=== PATIENT | female | born 2000 | race Caucasian/White ===

== ENCOUNTER → 2021-05-15 16:32 | Observation (INO) ==
[2021-05-15 15:37] LABS: Candida DNA DETECTED (Not Detect); Gardnerella DNA Not Detected (Not Detect); Trichomonas DNA Not Detected (Not Detect)
== END | disposition home or self-care (01) ==
LOC: 1NENULAB
PROVIDERS: ADMIT Registered Nurse; ATTEND Registered Nurse

== ENCOUNTER → 2021-06-01 15:18 | Observation (INO) ==
[2021-06-01 11:27] LABS: Basophils % 0.3 %; Eosinophils % 0.3 %; Hematocrit 25.1 % (35.3-44.9); Hemoglobin 7.6 g/dL (11.5-15.4); Immature Granulocytes % 0.7 % (0-4); Lymphocytes # 1.7 K/mcL (0.6-4.6); Lymphocytes % 16.8 %; Mean Corpuscular HGB Conc 30.3 g/dL (31.6-35.5); Mean Corpuscular Hemoglobin 25.2 pg (28.0-33.3); Mean Corpuscular Volume 83.1 fL (83.0-100.0); Mean Platelet Volume 10.5 fL (9.4-12.4); Monocytes # 0.8 K/mcL (0.0-1.3); Monocytes % 7.9 %; Neutrophils # 7.3 K/mcL (1.6-8.9); Platelet Count 242 K/mcL (140-400); Red Blood Count 3.02 M/mcL (3.82-4.97); Red Cell Distribution Width 14.2 % (11.5-14.5); White Blood Count 9.9 K/mcL (4.3-11.1)
[2021-06-01 11:29] LABS: Protein/Creatinine Ratio,Urine 0.23 mg/mg (0.00-0.20)
[2021-06-01 11:48] LABS: Alanine Aminotransferase 7 Units/L (7-52); Aspartate Amino Transferase 14 Units/L (13-39); BUN/Creatinine Ratio 9 (6-26); Blood Urea Nitrogen 6 mg/dL (6-20); Lactate Dehydrogenase 138 Units/L (140-271); Uric Acid 4.3 mg/dL (2.3-7.6); eGFR For African Americans > 60 (> 60); eGFR For Non-African Americans > 60 (> 60)
[2021-06-02 16:19] LABS: Total Volume 24 Hour,Urine 2.65 Liters (0.60-1.60)
[2021-06-02 16:39] LABS: Protein/Creatinine Ratio,Urine 0.22 mg/mg (0.00-0.20)
== END | disposition home or self-care (01) ==
LOC: 1NENULAB
PROVIDERS: ADMIT Obstetrics & Gynecology; ATTEND Obstetrics & Gynecology

== ENCOUNTER 2021-06-30 14:47 | Observation (INO) ==
[2021-06-30] MEDS ORDERED: EPHEDrine 50 MG/ML VIAL IVP PRN (15:20)
[2021-06-30] MEDS ORDERED: Epidural Premix (fent/bupiv) 110 ML EP SCH (15:30)
[2021-06-30] MEDS ORDERED: Ringers Solution, Lactated 1,000 ML ONE ×2 (16:46→18:42)
[2021-06-30] MEDS ORDERED: Ringers Solution, Lactated 500 ML IVC ONE (16:50)
[2021-06-30] MEDS ORDERED: Ringers Solution, Lactated 500 ML IVC SCH (17:00)
[2021-06-30 17:32] LABS: Basophils % 0.1 %; Eosinophils % 0.2 %; Hematocrit 31.7 % (35.3-44.9); Hemoglobin 10.4 g/dL (11.5-15.4); Immature Granulocytes % 0.6 % (0-4); Lymphocytes % 16.3 %; Mean Corpuscular HGB Conc 32.8 g/dL (31.6-35.5); Mean Corpuscular Hemoglobin 28.8 pg (28.0-33.3); Mean Corpuscular Volume 87.8 fL (83.0-100.0); Mean Platelet Volume 10.3 fL (9.4-12.4); Monocytes # 0.7 K/mcL (0.0-1.3); Monocytes % 6.4 %; Neutrophils # 7.7 K/mcL (1.6-8.9); Platelet Count 196 K/mcL (140-400); Red Blood Count 3.61 M/mcL (3.82-4.97); Red Cell Distribution Width 23.5 % (11.5-14.5); Segmented Neutrophils % 76.4 %; White Blood Count 10.1 K/mcL (4.3-11.1)
[2021-06-30 17:44] LABS: Lymphocytes # 1.7 K/mcL (0.6-4.6)
[2021-06-30 18:00] LABS: Platelet Estimate Normal (Normal)
[2021-06-30 18:01] LABS: Anisocytosis 2+ (Not Present)
[2021-06-30] MEDS ORDERED: Ringers Solution, Lactated 1,000 ML IVC ONE (19:45)
== END 2021-06-30 20:00 | disposition home or self-care (01) ==
LOC: 1NENULAB
PROVIDERS: ADMIT Registered Nurse; ATTEND Registered Nurse

== ENCOUNTER 2021-07-05 11:14 | Inpatient (IN) ==
[2021-07-05] MEDS ORDERED: Azithromycin 500 MG in 0.9 % Sodium Chloride 250 ML IVPB PRN (11:30)
[2021-07-05] MEDS ORDERED: *HR* Nalbuphine 10 MG/ML AMPUL IV PRN (11:30)
[2021-07-05] MEDS ORDERED: Naloxone 0.4 MG/ML INJ IVP PRN ×2 (11:30→18:33)
[2021-07-05] MEDS ORDERED: Famotidine 20 MG/2 ML VIAL IVP PRN ×2 (11:30→18:33)
[2021-07-05] MEDS ORDERED: Ondansetron 4 MG/2 ML VIAL IVP PRN (11:30)
[2021-07-05] MEDS ORDERED: Lidocaine 1% 20 ML MDV ID PRN (11:30)
[2021-07-05] MEDS ORDERED: Ringers Solution, Lactated 1,000 ML IVC SCH ×2 (11:30→18:45)
[2021-07-05] MEDS ORDERED: Metoclopramide 10 MG/2 ML VIAL IVP PRN ×2 (11:30→18:33)
[2021-07-05] MEDS ORDERED: EPHEDrine 50 MG/ML VIAL IVP PRN (16:44)
[2021-07-05] MEDS ORDERED: Epidural Premix (fent/bupiv) 110 ML EP SCH (16:45)
[2021-07-05 19:16] LABS: Basophils % 0.2 %; Eosinophils % 0.1 %; Hematocrit 35.3 % (35.3-44.9); Hemoglobin 11.5 g/dL (11.5-15.4); Immature Granulocytes % 0.6 % (0-4); Lymphocytes # 1.4 K/mcL (0.6-4.6); Lymphocytes % 9.6 %; Mean Corpuscular HGB Conc 32.6 g/dL (31.6-35.5); Mean Corpuscular Hemoglobin 28.8 pg (28.0-33.3); Mean Corpuscular Volume 88.3 fL (83.0-100.0); Mean Platelet Volume 10.1 fL (9.4-12.4); Monocytes # 0.8 K/mcL (0.0-1.3); Monocytes % 5.3 %; Platelet Count 186 K/mcL (140-400); Red Cell Distribution Width 23.7 % (11.5-14.5); Segmented Neutrophils % 84.2 %; White Blood Count 14.2 K/mcL (4.3-11.1)
[2021-07-05 19:24] LABS: Amphetamine Screen,Urine Negative ng/mL (Cutoff=1000); Barbiturate Screen,Urine Negative ng/mL (Cutoff=200); Benzodiazepines Screen,Urine Negative ng/mL (Cutoff=200); Cannabinoid Screen,Urine Negative ng/mL (Cutoff = 50); Cocaine Screen,Urine Negative ng/mL (Cutoff= 300); Opiate Screen,Urine Negative ng/mL (Cutoff=300); Phencyclidine Screen,Urine Negative ng/mL (Cutoff=25)
[2021-07-05 19:51] LABS: Anisocytosis 1+ (Not Present)
[2021-07-05] MEDS ORDERED: Oxytocin 20 units/ LR 1000 mL 20 UNIT/1,000 ML BAG IVC ONE (22:22)
[2021-07-06] MEDS ORDERED: Ondansetron ODT 4 MG TAB.RAPDIS SL PRN (03:07)
[2021-07-06] MEDS ORDERED: Measles/Mumps/Rubella Vacc 0.5 ML VIAL SQ PRN (03:07)
[2021-07-06] MEDS ORDERED: Rho Immune Globulin 1,500 UNIT SYRINGE IM PRN (03:07)
[2021-07-06] MEDS ORDERED: Oxytocin 20 units/ LR 1000 mL 20 UNIT/1,000 ML BAG IVC SCH (03:07)
[2021-07-06] MEDS ORDERED: Lanolin 7 G OINT...G. TP PRN (03:07)
[2021-07-06] MEDS ORDERED: Oxytocin 20 units/ LR 1000 mL 20 UNIT/1,000 ML BAG IVC ONE (03:07)
[2021-07-06] MEDS: Acetaminophen 325 MG TABLET PO SCH ×4 (03:38→22:14)
[2021-07-06] MEDS: Ibuprofen 600 MG TABLET PO SCH ×3 (05:41→22:14)
[2021-07-06 06:21] LABS: Basophils % 0.2 %; Eosinophils % 0.2 %; Hematocrit 27.5 % (35.3-44.9); Immature Granulocytes % 0.7 % (0-4); Lymphocytes # 1.8 K/mcL (0.6-4.6); Lymphocytes % 10.6 %; Mean Corpuscular HGB Conc 32.4 g/dL (31.6-35.5); Mean Corpuscular Hemoglobin 28.8 pg (28.0-33.3); Mean Platelet Volume 10.8 fL (9.4-12.4); Monocytes % 5.7 %; Neutrophils # 13.8 K/mcL (1.6-8.9); Platelet Count 174 K/mcL (140-400); Red Blood Count 3.09 M/mcL (3.82-4.97); Red Cell Distribution Width 23.5 % (11.5-14.5); Segmented Neutrophils % 82.6 %; White Blood Count 16.7 K/mcL (4.3-11.1)
[2021-07-06 06:24] LABS: Hemoglobin 8.9 g/dL (11.5-15.4)
[2021-07-06 06:50] LABS: Anisocytosis 1+ (Not Present); Platelet Estimate Normal (Normal); Poikilocytosis 1+ (Not Present)
[2021-07-06] MEDS: Prenatal Vit/FA 1 EACH TABLET PO SCH (09:39)
[2021-07-06] MEDS: Benzocaine/Menthol 56 GM AEROSOL SPRAY TP PRN (09:40)
[2021-07-07] MEDS: Ibuprofen 600 MG TABLET PO SCH (06:46)
[2021-07-07] MEDS: Acetaminophen 325 MG TABLET PO SCH (06:47)
[2021-07-07] MEDS: Prenatal Vit/FA 1 EACH TABLET PO SCH (10:49)
[2021-07-07] MEDS: Benzocaine/Menthol 56 GM AEROSOL SPRAY TP PRN (10:49)
[2021-07-07 12:52] VITALS: BP 115/75; PULSE 76; TEMP 98.2; O2SAT 99
== END 2021-07-07 12:35 | disposition home or self-care (01) | DRG 768 ==
LOC: 1NENULAB 11:14 → 1NENUOBS 07-06 04:58
PROVIDERS: ADMIT Obstetrics & Gynecology; ATTEND Obstetrics & Gynecology